=== PATIENT | female | born 1980 | race Caucasian/White ===

== ENCOUNTER 2019-06-10 15:54 | Emergency (ER) | payer MEDICAID ==
[~2019-06-10] VITALS: Ht 152.4 cm; Wt 60.9 kg
[2019-06-10 16:27] VITALS: Ht 152.4 cm; Wt 60.9 kg
[2019-06-10 16:43] VITALS: BP 128/70
== END 2019-06-10 16:43 | disposition home or self-care (01) ==
LOC: ED 15:54
DX: H10.13 Acute atopic conjunctivitis, bilateral (principal)

== ENCOUNTER 2019-07-04 18:59 | Emergency (ER) | payer MEDICAID ==
[~2019-07-04] VITALS: Ht 152.4 cm; Wt 61.7 kg
[2019-07-04 19:13] VITALS: Ht 152.4 cm; Wt 61.7 kg
[2019-07-04 19:29] LABS: BASOPHIL % 0.3 % (0-2); PLATELET COUNT 379 x10^3mcL (130-400); RED CELL DISTRIBUTION WIDTH 12.8 % (11.5-14.5)
[2019-07-04 19:46] LABS: ALBUMIN 3.5 g/dL (3.4-5.0); ALKALINE PHOSPHATASE 120 U/L (46-116); ALT/SGPT 23 U/L (14-59); AST/SGOT 18 U/L (15-37); BILIRUBIN TOTAL 0.13 mg/dL (0.20-1.00); CHLORIDE SERUM 105 mmol/L (98-107); CREATININE SERUM 0.6 mg/dL (0.6-1.0); GFR1 > 60 mL/min; GLUCOSE SERUM 95 mg/dL (74-106); LIPASE 91 IU/L (73-393); SODIUM SERUM 142 mmol/L (136-145); TOTAL PROTEIN, SERUM 7.7 g/dL (6.4-8.2)
[2019-07-04 21:48] VITALS: BP 105/59
== END 2019-07-04 21:48 | disposition home or self-care (01) ==
LOC: ED 18:59
PROVIDERS: Emergency Medicine
DX: K29.70 Gastritis, unspecified, without bleeding (principal); Z90.89 Acquired absence of other organs
CPT/HCPCS: 36415; Q0092